=== PATIENT | female | born 1990 | race Two or more races ===

== ENCOUNTER 2025-08-23 13:32 | Emergency (ER) | payer MEDICAID ==
[~2025-08-23] VITALS: Ht 160 cm; Wt 97.1 kg
[2025-08-23] MEDS ORDERED: IBUP-1454 PO (14:53)
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
[2025-08-23 15:26] VITALS: BP 126/74; PULSE 78; RESP 16; TEMP 98; O2SAT 97
== END 2025-08-23 15:27 | disposition home or self-care (01) ==
LOC: ER 13:32
DX: M54.2 Cervicalgia (principal); R13.10 Dysphagia, unspecified; R22.1 Localized swelling, mass and lump, neck; Z04.89 Encounter for examination and observation for other specified reasons
CPT/HCPCS: 96372; 99283; J1100